=== PATIENT | female | born 1955 | race Caucasian/White ===

== ENCOUNTER → 2023-04-24 | Outpatient (CLI) | payer MEDICARE, MEDICAID ==
[~2023-04-24] MED LIST: ALBU18HF2 INH; ASPI-205 PO; AZEL30SP3 BOTHNARES; CALC625T31 PO; CRAN300T PO; DICY10CA88 PO; EMPA25TA PO; FLO0.1T PO; FLUT16SP10 NAS; FURO40TA4 PO; LOSA-418 PO; MONT-47 PO; MUPI22OI30 BOTHNARES; NYSPWD TP; ONDA4TAB6 PO; PANT-47 PO; PER10325T PO; POLY17PO10 PO; SEMA3TAB4 PO; TOPI-253 PO; VALS40TA2 PO
== END | disposition home or self-care (01) ==
LOC: RAD 14:17 → EDSTATUS 04-30 11:45
PROVIDERS: ATTEND Otolaryngology
DX: I44.7 Left bundle-branch block, unspecified (principal); J34.2 Deviated nasal septum; J34.3 Hypertrophy of nasal turbinates
CPT/HCPCS: 93005

== ENCOUNTER 2023-06-25 08:20 | Day surgery (SDC) | payer MEDICARE, MEDICAID ==
[2023-06-25] VITALS (15 sets, daily range): BP systolic 115–220; BP diastolic 50–156; PULSE 84–98; RESP 10–23; TEMP 97.5; O2SAT 95–100
[~2023-06-25] VITALS: Ht 170.2 cm; Wt 73.1 kg
[2023-06-25] MEDS: tranexamic acid inj. 1,000 MG in normal saline IV soln 100ML IV ONE (05:30)
[2023-06-25] MEDS: cefazolin 2gm/D5W 100mL 100 ML IV ONE (05:30)
[~2023-06-25 08:20] MED LIST changes: -ALBU18HF2 INH; +CETI-91 PO; +DICL100G59 TOP; -FURO40TA4 PO; -LOSA-418 PO; +LOSA100T58 PO; -NYSPWD TP; -ONDA4TAB6 PO; -PANT-47 PO; +PANT40TA54 PO; -PER10325T PO; -POLY17PO10 PO; +SEMA14TA2 PO; -SEMA3TAB4 PO; -TOPI-253 PO; +TOPI-95 PO; -VALS40TA2 PO; +VITAMIN D3; +[UNRECOGNIZED DRUG - OTHER]
[2023-06-25] MEDS ORDERED: oxymetazoline 15 ML nasal spray NS ONE (09:08)
[2023-06-25] MEDS ORDERED: epiNEPHrine 1 mg/ml 30ml MDV ONE (09:08)
[2023-06-25] MEDS: oxymetazoline 15 ML nasal spray NS ONE (09:35)
[2023-06-25] MEDS: famotidine 20mg tablet PO ONE (09:36)
[2023-06-25] MEDS: ringers solution, lacted 1,000 ML IV SCH (09:36)
[2023-06-25] MEDS ORDERED: sevoflurane 250ml liquid IH ONE (10:36)
[2023-06-25] MEDS ORDERED: fentaNYL/PF 50MCG/1 ML 2ML syringe ONE (10:41)
[2023-06-25] MEDS ORDERED: midazolam 1 mg/ML 2ml injection ONE (10:42)
[2023-06-25] MEDS ORDERED: propofol inj 20 ML IV ONE (10:44)
[2023-06-25] MEDS ORDERED: ringers solution, lacted 1,000 ML IV SCH (11:15)
[2023-06-25] MEDS ORDERED: morphine 2 MG/ML inj. syringe IV PRN (11:15)
[2023-06-25] MEDS ORDERED: meperidine/PF 25mg/ml syringe IV PRN ×2 (11:15)
[2023-06-25] MEDS ORDERED: proCHLORperazine 10 MG/2 ml inj IV PRN (11:15)
[2023-06-25] MEDS ORDERED: ondansetron/PF 4mg/2ml inj IV PRN (11:15)
[2023-06-25] MEDS ORDERED: morphine 4 MG/ML inj SYRINge IV PRN (11:15)
[2023-06-25] MEDS ORDERED: ondansetron/PF 4mg/2ml inj ONE (11:28)
[2023-06-25] MEDS ORDERED: dexamethasone sod phosphate 4mg/ml inj. ONE (11:28)
[2023-06-25] MEDS: salt irrigation nasal spray 45 ML SPRAY NS PRN (12:17)
[2023-06-25] MEDS: mupirocin 2% nasal ointment 1gm UD NS ONE (12:17)
[2023-06-25] MEDS: labetalol 20mg/4ml (5mg/ml) syringe IV PRN (12:28)
[2023-06-25] MEDS: meperidine/PF 25mg/ml syringe IV PRN (12:42)
[2023-06-25] MEDS ORDERED: hydrALAZINE 20mg/ml inj. IV PRN (12:55)
[2023-06-25] MEDS: LIDOcaine 1% w/EPI 1:100,000 inj. MDV 50 ML VIAL ONE (15:05)
[2023-06-25] MEDS: cocaine 4% topical solution 4ml bottle ONE (15:07)
[2023-06-25] MEDS: mupirocin 2% ointment 22GM ONE (15:07)
[2023-06-25] MEDS: tranexamic acid 100mg/ml inj. ONE (15:07)
[2023-06-25] MEDS: bacitracin 15gm ointment TP ONE (15:10)
== END 2023-06-25 13:16 | disposition home or self-care (01) ==
LOC: PAS 08:20
PROVIDERS: ATTEND Otolaryngology
DX: J34.2 Deviated nasal septum (principal); J34.3 Hypertrophy of nasal turbinates; E11.22 Type 2 diabetes mellitus with diabetic chronic kidney disease; I12.9 Hypertensive chronic kidney disease with stage 1 through stage 4 chronic kidney disease, or unspecified chronic kidney disease; N18.30 Chronic kidney disease, stage 3 unspecified; E11.42 Type 2 diabetes mellitus with diabetic polyneuropathy; K21.9 Gastro-esophageal reflux disease without esophagitis; I25.10 Atherosclerotic heart disease of native coronary artery without angina pectoris; M19.90 Unspecified osteoarthritis, unspecified site; Z90.710 Acquired absence of both cervix and uterus; Z98.890 Other specified postprocedural states; Z96.642 Presence of left artificial hip joint; Z79.899 Other long term (current) drug therapy
CPT/HCPCS: 30140; 30520; 82948; A6402; J0690; J1100; J2175; J2250; J2405; J2704; J3010; J3490; J7030; J7120; Z7506; Z7508; Z7512; 88300; A4618; A6449; A7000; J0171